=== PATIENT | female | born 1980 | race Caucasian/White ===

== ENCOUNTER 2017-12-28 12:40 | Outpatient (CLI) | payer BC | END 2017-12-28 12:41 | disposition home or self-care (01) | LOC: BICRAD 12:40 | PROVIDERS: ATTEND Internal Medicine | DX: R05 Cough (principal); R07.81 Pleurodynia | CPT/HCPCS: 71046 ==

== ENCOUNTER 2023-12-03 12:51 | Outpatient (CLI) | payer BC | END 2023-12-03 12:52 | disposition home or self-care (01) | LOC: BICMRI 12:51 | PROVIDERS: ATTEND Family Medicine | DX: Z98.82 Breast implant status (principal) | CPT/HCPCS: A9577; C8908 ==